=== PATIENT | female | born 1990 | race Caucasian/White ===

== ENCOUNTER 2016-12-05 10:18 | Emergency (ER) | payer OTHER ==
--- NOTE | 2016-12-05 11:44 | RAD ---
CHEST - 2 VIEWS COMPARISON: None. HISTORY: Shortness of breath and flu symptoms. FINDINGS: Views: Frontal and lateral chest Lungs: Normal Heart and vessels: Normal Trachea and bronchi: Normal Mediastinum and claudia: Normal Costophrenic sulci: Normal Chest wall and bones: Normal. Upper abdomen: Surgical clips from cholecystectomy. IMPRESSION: Negative 2 view chest.
[2016-12-05] MEDS ORDERED: ALBUTEROL/IPRATROPIUM 2.5/0.5 MG 3 ML/EACH DOSE ONE (11:52)
[2016-12-05] MEDS ORDERED: PREDNISONE 20 MG TABLET ONE (12:16)
== END 2016-12-05 13:50 | disposition home or self-care (01) ==
LOC: ED 10:18
DX: J06.9 Acute upper respiratory infection, unspecified (principal); J45.909 Unspecified asthma, uncomplicated; F17.210 Nicotine dependence, cigarettes, uncomplicated
CPT/HCPCS: 71020; 94640; 99283 ×2; 93005; J7512